=== PATIENT | male | born 1960 | race Caucasian/White ===

== ENCOUNTER → 2019-11-17 18:49 | Outpatient (CLI) | payer MEDICAID ==
[~2019-11-17 18:49] MED LIST: ALBUTEROL1.25 MG/3 INH; COZAAR100 MG; NORCO 7.5-3251 EACH; VENTOLIN HFA [SP8 GM
== END | disposition home or self-care (01) ==
LOC: D.LABREF 18:49
PROVIDERS: ATTEND Surgery
DX: K43.9 Ventral hernia without obstruction or gangrene (principal)